=== PATIENT | female | born 1980 | race Two or more races ===

== ENCOUNTER 2024-04-28 20:25 | Emergency (ER) | payer SELFPAY ==
[~2024-04-28] VITALS: Ht 160 cm; Wt 57.9 kg
[2024-04-28 21:10] LABS: Basophils # (auto) 0.1 10 ^3/uL (0-0.2); Basophils % (auto) 0.5 % (0.0-2.0); Eosinophils # (auto) 0.1 10 ^3/uL (0-0.8); Eosinophils % (auto) 1.1 % (0.0-7.0); Hematocrit 51.8 % (36.0-46.0); Hemoglobin 16.5 g/dL (12.2-16.2); Lymphocytes # (auto) 3.7 10 ^3/uL (0.4-5.4); Lymphocytes % (auto) 37.2 % (10.0-50.0); Mean Corpuscular Hemoglobin 26.7 pg (28.0-32.0); Mean Corpuscular Hgb Conc. 31.9 g/dL (32.0-36.0); Mean Corpuscular Volume 83.8 fL (80.0-100.0); Monocytes # (auto) 0.6 10 ^3/uL (0-1.3); Monocytes % (auto) 5.5 % (0.0-12.0); Neutrophils # (auto) 5.6 10 ^3/uL (1.6-8.6); Neutrophils % (auto) 55.7 % (37.0-80.0); Platelet Count (auto) 340 10^3/uL (140-450); Red Blood Cells 6.18 10^6/uL (4.0-5.20); Red Cell Distribution Width 15.1 % (11.8-14.3)
[2024-04-28 21:15] LABS: Chloride 107 mmol/L (98-107); Potassium 3.6 mmol/L (3.5-5.1); Sodium 138 mmol/L (136-145)
[2024-04-28 21:16] LABS: Anion Gap 9 (5-15); Carbon Dioxide 22 mmol/L (20-31)
[2024-04-28 21:17] LABS: Calcium 10.2 mg/dL (8.7-10.4)
[2024-04-28 21:21] LABS: BUN/Creatinine Ratio 8.6 (10.0-20.0); Blood Urea Nitrogen 7 mg/dL (9-23); Glucose 150 mg/dL (74-106)
[2024-04-28] MEDS: HYDROcodone-ACET 5/325MG TAB PO ONE (23:15)
[2024-04-28 23:16] VITALS: BP 129/72; PULSE 90; RESP 16; TEMP 98.4; O2SAT 96
== END 2024-04-29 00:39 | disposition home or self-care (01) ==
LOC: ER 20:25
DX: E86.0 Dehydration (principal); R73.9 Hyperglycemia, unspecified; F17.210 Nicotine dependence, cigarettes, uncomplicated; Z90.49 Acquired absence of other specified parts of digestive tract
CPT/HCPCS: 36415; 80048; 85025